=== PATIENT | female | born 1995 | race Caucasian/White ===

== ENCOUNTER 2017-04-01 21:17 | Emergency (ER) | payer MEDICAID ==
[~2017-04-01] VITALS: Ht 165.1 cm; Wt 83.9 kg
--- NOTE | 2017-04-02 00:25 | NUR ---
PT AMBULATORY TO ER BED 7. PT BIB SELF C/O NAUSEA/VOMITING X 1 DAY; LAST VOMITED YESTERDAY AT 1700. 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 VSS/RESP EVEN UNLABORED/NAD NOTED/SKIN WARM AND DRY/AOX4. AWAITING MD HOPKINS.
[2017-04-02] MEDS ORDERED: ONDANSETRON HCL/PF 4 MG/2 ML VIAL ONE (00:34)
[2017-04-02] MEDS: ONDANSETRON HCL/PF 4 MG/2 ML VIAL IV ONE (00:40)
[2017-04-02] MEDS ORDERED: ACETAMINOPHEN ES 500 MG TABLET ONE (01:10)
[2017-04-02] MEDS: ACETAMINOPHEN 325 MG TABLET PO ONE (01:11)
--- NOTE | 2017-04-02 01:40 | NUR ---
Patient discharged to home in stable condition. Written and verbal after care instructions given. Patient verbalizes understanding of instruction. Patient ambulatory with a steady gait.
[2017-04-02 01:41] VITALS: BP 139/74
== END 2017-04-02 01:42 | disposition home or self-care (01) ==
LOC: ER 21:18
DX: R11.2 Nausea with vomiting, unspecified (principal)
CPT/HCPCS: 96372; 99283; A4606; J2405; Z7610